=== PATIENT | male | born 1945 | race Caucasian/White ===

== ENCOUNTER 2018-08-22 10:30 | Outpatient (CLI) | payer MEDICARE ==
--- NOTE | 2018-08-22 11:01 | RAD ---
XR Knee Lt 4 View STANDARD: 08/22/2018 12:00 AM CLINICAL INDICATION: Pain, fall COMPARISON: None. FINDINGS: Fracture:No fracture. Arthropathy:Chondrocalcinosis, and osteophytosis with joint compartment narrowing. 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 IMPRESSION: 1. No acute osseous abnormality. 2. CPPD deposition disease.
== END 2018-08-22 10:31 | disposition home or self-care (01) ==
LOC: SCSRAD 10:30
PROVIDERS: ATTEND Family Medicine
DX: S89.92XA Unspecified injury of left lower leg, initial encounter (principal); M11.862 Other specified crystal arthropathies, left knee

== ENCOUNTER 2018-10-19 14:30 | Outpatient (CLI) | payer MEDICARE ==
--- NOTE | 2018-10-19 15:16 | RAD ---
EXAM: Right hip: 2 views INDICATIONS: Hip pain COMPARISON: None. FINDINGS: Moderate degenerative changes. Joint narrowing and hypertrophic spurring from the femoral h ead and acetabulum. No evidence of fracture. IMPRESSION: Moderate degenerative change
== END 2018-10-19 14:31 | disposition home or self-care (01) ==
LOC: SCSRAD 14:30
PROVIDERS: ATTEND Family Medicine
DX: M25.551 Pain in right hip (principal); M16.11 Unilateral primary osteoarthritis, right hip

== ENCOUNTER 2019-03-16 05:25 | Outpatient (CLI) | payer MEDICARE ==
--- NOTE | 2019-03-16 11:20 | RAD ---
XR Chest Pa Lat STANDARD HISTORY: Preoperative evaluation COMPARISON: None FINDINGS: The heart size is normal. The lungs are well expanded without focal areas of consolidation, pneumothorax or pleural effusions. There are degenerative changes in the spine. IMPRESSION: No radiographic evidence of acute cardiopulmonary process.
[2019-03-16 11:23] LABS: #Basophils 0.1 thou/uL (0.0-0.2); #Eosinphils 0.3 thou/uL (0.0-0.7); #Lymphocytes 1.4 thou/uL (1.20-3.40); #Monocytes 0.7 thou/uL (0.11-0.59); #Neutrophils 4.6 thou/uL (1.40-6.50); %Basophils 1.2 % (0.0-1.0); %Eosinophils 3.7 % (0.0-10.0); %Monocytes 9.8 % (0.0-10.0); %Neutrophils 65.4 % (42.0-75.0); Hemoglobin 15.6 g/dL (14.0-18.0); Mean Corpuscular HGB CONC 34.3 g/dL (32.0-36.0); Mean Corpuscular Volume 90.3 fL (78.0-98.0); Mean Platelet Volume 7.2 fL (7.4-10.4); Platelet Count 176 thou/uL (130-400); RBC Distribution Width 12.5 % (11.5-14.5); Red Blood Cell (RBC) Count 5.02 mill/uL (4.70-6.10)
[2019-03-16 11:31] LABS: Hemoglobin A1c 4.5 % (4.0-6.0)
[2019-03-16 11:46] LABS: ALT (SGPT) 16 U/L (8-55); AST (SGOT) 18 U/L (5-34); Albumin 4.5 g/dL (3.4-4.8); Alkaline Phosphatase 70 U/L (40-110); Anion Gap 12 mmol/L (10-20); BUN (Urea Nitrogen) 15 mg/dL (8.4-25.7); Bilirubin, Total 1.4 mg/dL (0.2-1.2); Calc. Creatinine Clearance 0 mL/min (70-130); Calcium 9.4 mg/dL (7.8-10.44); Carbon Dioxide 24 mmol/L (23-31); Chloride 106 mmol/L (98-107); Estimated GFR-MDRD Greater than 90; Globulin 2.4 g/dL (2.4-3.5); Glucose 88 mg/dL (83-110); Protein, Total 6.9 g/dL (5.8-8.1); Sodium 138 mmol/L (136-145)
== END 2019-03-16 05:26 | disposition home or self-care (01) ==
LOC: LABBT 05:25
PROVIDERS: ATTEND Surgery
DX: Z01.818 Encounter for other preprocedural examination (principal); K95.09 Other complications of gastric band procedure
CPT/HCPCS: 71046; 80053; 83036; 85025; 93005; 93010

== ENCOUNTER 2019-03-22 11:28 | Day surgery (SDC) | payer MEDICARE ==
[2019-03-16 09:45] VITALS: BMI 44.7
[2019-03-22] MEDS ORDERED: Lidocaine 1% PF 5 ML VIAL ONE (12:29)
[2019-03-22] MEDS ORDERED: Ondansetron PF 4 MG/2 ML Vial ONE (12:29)
[2019-03-22] MEDS ORDERED: Rocuronium Bromide 10 MG/ML (10ML VIAL) ONE (12:29)
[2019-03-22] MEDS ORDERED: Dexamethasone 20 MG/5 ML VIAL ONE (12:29)
[2019-03-22] MEDS ORDERED: PROPOFOL 200 MG/20 ML VIAL ONE (12:29)
[2019-03-22] MEDS ORDERED: Succinylcholine Chloride 20 MG/ML 10 ml SYRINGE FS ONE (12:29)
[2019-03-22] MEDS ORDERED: Fentanyl 100 MCG/2 ML VIAL ONE ×2 (12:59→13:04)
[2019-03-22] MEDS ORDERED: Bupivacaine 0.25% HCL 30 ML VIAL ONE ×2 (13:00)
[2019-03-22] MEDS ORDERED: Heparin 5,000 UNITS/ML VIAL ONE (13:05)
[2019-03-22] MEDS ORDERED: SUGAMMADEX SODIUM 200 MG/2 ML VIAL ONE (13:42)
--- NOTE | 2019-03-23 11:28 | OP ---
DATE OF PROCEDURE: 03/22/2019 PREOPERATIVE DIAGNOSES: Other complication of gastric band, dysphagia, morbid obesity. PROCEDURE PERFORMED: Laparoscopic removal of gastric band and subcutaneous port. ANESTHESIA: General. ESTIMATED BLOOD LOSS: Minimal. COMPLICATIONS: None. SPECIMEN: None. FINDINGS: The lap band appeared to be located more higher up on the stomach with evidence of mild prolapse. DESCRIPTION OF PROCEDURE: The patient was taken to the operating room and laid supine on the operating room table. After general anesthetic was obtained, the abdomen was prepped and draped in a sterile fashion. Left subcostal 5 mm Optiview trocar was placed in usual fashion. High-flow pneumoperitoneum was obtained. 5 mm ports were placed in the left lateral upper abdomen and two on the right side of the abdomen. The peritoneum over the cuff of the band was cauterized exposing the buckle. The band was able to be unbuckled. The tubing was cut where it exited the abdomen. The band was able to brought back from around the stomach. No damage to the stomach was obvious. There was no ischemia to the stomach. One of the incisions was enlarged to 11 mm trocar site, and the lap band was able to be brought out through this incision. This fascial defect was closed using GraNee needle and 0 Vicryl tie. All port sites were infiltrated using local anesthetic. All ports were removed under camera visualization. Pneumoperitoneum was let down. Incision was made overlying the port in the left upper lateral abdomen, and the lap band port was removed from the muscle as was all suture material. The wounds were all irrigated and closed using 4-0 Monocryl and Dermabond. The patient was sent to Recovery in stable condition. All instrument counts, needle counts, and lap counts were correct. Job ID: [id number]
== END 2019-03-22 17:05 | disposition home or self-care (01) ==
LOC: SDC 11:28
PROVIDERS: ATTEND Surgery
PROC: 0DP64CZ Removal of Extraluminal Device from Stomach, Percutaneous Endoscopic Approach (ICD-10-PCS; principal; 2019-03-22)
DX: K95.09 Other complications of gastric band procedure (principal); I10 Essential (primary) hypertension; E66.01 Morbid (severe) obesity due to excess calories; Z68.44 Body mass index [BMI] 60.0-69.9, adult; Z79.1 Long term (current) use of non-steroidal anti-inflammatories (NSAID); Z79.899 Other long term (current) drug therapy
CPT/HCPCS: J0690; J1644; J3010; S0020

== ENCOUNTER 2023-01-05 08:37 | Outpatient (CLI) | payer MEDICARE ==
[2023-01-05 09:41] LABS: #Basophils 0.1 10x3/uL (0.0-0.2); #Eosinphils 0.2 10x3/uL (0.0-0.5); #Monocytes 0.7 10x3/uL (0.0-1.1); #Neutrophils 3.1 10x3/uL (1.5-8.4); %Basophils 1.3 % (0.0-2.0); %Eosinophils 3.3 % (0.0-6.0); %Lymphocytes 22.3 % (18.0-47.0); %Monocytes 12.7 % (0.0-10.0); %Neutrophils 60.2 % (40.0-75.0); Hematocrit 42.6 % (38.8-50.0); Hemoglobin 15.4 g/dL (13.5-17.5); Mean Corpuscular HGB CONC 36.2 g/dL (32.0-36.0); Mean Corpuscular Hemoglobin 30.6 pg (27.0-33.0); Mean Corpuscular Volume 84.5 fl (81.2-95.1); Mean Platelet Volume 9.1 fl (7.4-10.4); Platelet Count 167 10x3/uL (150-450); RBC Distribution Width 14.6 % (11.5-14.5); Red Blood Cell (RBC) Count 5.04 10x6/uL (4.32-5.72); White Blood Cell (WBC) Count 5.2 10x3/uL (3.5-10.5)
[2023-01-05 10:08] LABS: ALT (SGPT) 27 U/L (8-55); AST (SGOT) 31 U/L (5-34); Albumin 4.7 g/dL (3.4-4.8); Alkaline Phosphatase 72 U/L (40-110); Anion Gap 14 mmol/L (10-20); BUN (Urea Nitrogen) 18 mg/dL (8.4-25.7); Bilirubin, Total 1.7 mg/dL (0.2-1.2); Calc. Creatinine Clearance 0 mL/min (70-130); Calcium 9.5 mg/dL (7.8-10.44); Carbon Dioxide 23 mmol/L (23-31); Chloride 105 mmol/L (98-107); Estimated GFR 94; Globulin 2.4 g/dL (2.4-3.5); Glucose 95 mg/dL (83-110); Potassium 4.4 mmol/L (3.5-5.1); Protein, Total 7.1 g/dL (5.8-8.1); Sodium 138 mmol/L (136-145)
== END 2023-01-05 08:38 | disposition home or self-care (01) ==
LOC: LABBT 08:37
PROVIDERS: ATTEND Surgery
DX: Z01.818 Encounter for other preprocedural examination (principal); K40.20 Bilateral inguinal hernia, without obstruction or gangrene, not specified as recurrent
CPT/HCPCS: 80053; 85025; 93005; 93010

== ENCOUNTER 2023-01-15 07:08 | Day surgery (SDC) | payer MEDICARE ==
[2023-01-05 09:00] VITALS: BMI 45.6
[2023-01-15] MEDS ORDERED: EPINEPHrine 1 MG/ML VIAL ONE (10:38)
[2023-01-15] MEDS ORDERED: Bupivacaine 0.25% HCL 30 ML VIAL ONE (10:38)
[2023-01-15] MEDS ORDERED: fentaNYL PF 100 MCG/2 ML SYRINGE ONE (10:50)
[2023-01-15] MEDS ORDERED: Lidocaine 1% PF 5 ML VIAL ONE (10:50)
[2023-01-15] MEDS ORDERED: PROPOFOL 40 ML ONE (10:50)
[2023-01-15] MEDS ORDERED: Rocuronium Bromide 10 MG/ML (10ML VIAL) ONE ×3 (10:50→11:02)
[2023-01-15] MEDS ORDERED: Ondansetron PF 4 MG/2 ML Vial ONE ×2 (10:50→11:02)
[2023-01-15] MEDS ORDERED: Dexamethasone 4 mg/ml Vial ONE (10:50)
[2023-01-15] MEDS ORDERED: SUGAMMADEX SODIUM 200 MG/2 ML VIAL ONE ×2 (10:51→12:39)
[2023-01-15] MEDS ORDERED: Sodium Chloride 0.9% 100 ML ONE (10:55)
[2023-01-15] MEDS ORDERED: CEFAZOLIN 2 GM VIAL ONE (10:55)
[2023-01-15] MEDS ORDERED: Lidocaine 4% Topical Sol 50 ML BOT ONE ×2 (10:56→10:58)
[2023-01-15] MEDS ORDERED: PROPOFOL 200 MG/20 ML VIAL ONE (11:02)
[2023-01-15] MEDS ORDERED: Dexamethasone 20 MG/5 ML VIAL ONE (11:02)
[2023-01-15] MEDS ORDERED: PROPOFOL 20 ML ONE (11:10)
[2023-01-15] MEDS ORDERED: ePHEDrine Sulfate 50 MG/10 ML VIAL ONE (11:19)
[2023-01-15] MEDS ORDERED: Fentanyl 250 MCG/5 ML VIAL ONE (13:18)
[2023-01-15] MEDS ORDERED: fentaNYL 50 mcg/mL 1 mL Vial ONE (13:19)
== END 2023-01-15 15:18 | disposition home or self-care (01) ==
LOC: SDC 07:08
PROVIDERS: ATTEND Surgery
PROC: 0YQA0ZZ Repair Bilateral Inguinal Region, Open Approach (ICD-10-PCS; principal; 2023-01-15)
PROC: 8E0W0CZ Robotic Assisted Procedure of Trunk Region, Open Approach (ICD-10-PCS; 2023-01-15)
DX: K40.20 Bilateral inguinal hernia, without obstruction or gangrene, not specified as recurrent (principal); F10.90 Alcohol use, unspecified, uncomplicated; K42.9 Umbilical hernia without obstruction or gangrene; I10 Essential (primary) hypertension; E66.9 Obesity, unspecified; Z68.42 Body mass index [BMI] 45.0-49.9, adult; Z90.89 Acquired absence of other organs; Z96.641 Presence of right artificial hip joint; Z79.899 Other long term (current) drug therapy; Z90.49 Acquired absence of other specified parts of digestive tract; Z98.890 Other specified postprocedural states
CPT/HCPCS: 49650; A4314; C1781 ×2; J0171; J3010; J1100; J2405; J2704; J3490; S0020

== ENCOUNTER 2024-11-08 06:55 | Day surgery (SDC) | payer MEDICARE ==
[2024-11-07 11:35] VITALS: BMI 44.4
[2024-11-08] MEDS ORDERED: Fleet Saline Enema 133 ML BOT ONE (07:18)
[2024-11-08] MEDS ORDERED: Lidocaine 1% PF 5 ML VIAL ONE (07:45)
[2024-11-08] MEDS ORDERED: PROPOFOL 40 ML ONE (07:45)
[2024-11-08] MEDS ORDERED: GLYCOPYRROLATE/PF 0.2 MG/ML VIAL ONE (07:46)
== END 2024-11-08 10:20 | disposition home or self-care (01) ==
LOC: SDC 06:55
PROVIDERS: ATTEND Internal Medicine Gastroenterology
PROC: 0DBK8ZZ Excision of Ascending Colon, Via Natural or Artificial Opening Endoscopic (ICD-10-PCS; principal; 2024-11-08)
PROC: 0DBL8ZZ Excision of Transverse Colon, Via Natural or Artificial Opening Endoscopic (ICD-10-PCS; 2024-11-08)
DX: Z12.11 Encounter for screening for malignant neoplasm of colon (principal); D12.2 Benign neoplasm of ascending colon; D12.3 Benign neoplasm of transverse colon; I10 Essential (primary) hypertension; M54.9 Dorsalgia, unspecified; Z80.0 Family history of malignant neoplasm of digestive organs; Z86.0101 Personal history of adenomatous and serrated colon polyps
CPT/HCPCS: 45385; J2704; J3490; 88305